=== PATIENT | female | born 1985 | race African-American/Black ===

== ENCOUNTER 2021-01-24 08:30 | Inpatient (IN) | payer OTHER ==
[2021-01-24 09:49] VITALS: BMI 32.5
[2021-01-24] MEDS ORDERED: OXYTOCIN 30 UNITS in 0.9% NS 30 UNIT/500 ML INFUS.BAG IVPB SCH (10:00)
[2021-01-24] MEDS ORDERED: ELECTROLYTE-148 SOLN 1,000 ML IV SCH (10:00)
[2021-01-24] MEDS ORDERED: AMPICILLIN SODIUM 2 GM VIAL ONE (10:08)
[2021-01-24 10:13] LABS: INR 1.01 (0.83-1.09); PROTHROMBIN TIME (PATIENT) 12.2 SEC (9.7-13.0)
[2021-01-24 10:15] LABS: BASO % 0.3 % (0-2.0); EOS % 1.1 % (0-4.5); HEMATOCRIT 29.7 % (32.4-45.2); HEMOGLOBIN 10.3 GM/dL (10.7-15.3); LYMPH % 21.5 % (8-40); MCH 29.8 pg (25.7-33.7); MCHC 34.6 g/dl (32.0-36.0); MEAN CELL VOLUME 86.3 fl (80-96); MEAN PLT VOLUME 7.9 fl (7.5-11.1); MONO % 8.2 % (3.8-10.2); NEUT % 68.9 % (42.8-82.8); PLATELET COUNT 259 K/MM3 (134-434); RBC 3.45 M/mm3 (3.60-5.2); RDW 14.9 % (11.6-15.6); WHITE BLOOD COUNT 8.9 K/mm3 (4.0-10.0)
[2021-01-24 10:16] LABS: ACTIVATED PTT 26.6 SECONDS (25.2-36.5)
[2021-01-24 10:32] LABS: CALCIUM 9.4 mg/dL (8.5-10.1)
[2021-01-24 10:33] LABS: BLOOD UREA NITROGEN 10.1 mg/dL (7-18)
[2021-01-24] MEDS ORDERED: OXYTOCIN 30 UNITS in 0.9% NS 30 UNIT/500 ML INFUS.BAG IVPB ONE (10:33)
[2021-01-24 10:36] LABS: CREATININE 0.7 mg/dL (0.55-1.3)
[2021-01-24] MEDS ORDERED: AMPICILLIN - 2 GM in SODIUM CHLORIDE 100 ML IVPB ONE (10:40)
[2021-01-24] MEDS ORDERED: AMPICILLIN SODIUM 1 GM VIAL ONE (13:23)
[2021-01-24] MEDS: AMPICILLIN - 1 GM in SODIUM CHLORIDE 100 ML IVPB SCH ×2 (13:45→18:26)
[2021-01-24] MEDS ORDERED: OXYTOCIN 20 UNITS in 0.9% NS 20 UNIT/1,000 ML INFUS.BAG IV ONE (17:07)
[2021-01-24] MEDS ORDERED: NALOXONE HCL 0.4 MG/ML VIAL IVPUSH PRN (17:08)
[2021-01-24] MEDS ORDERED: FENTANYL/BUPIVACAINE/NS/PF - PCEA - 50 ML DISP.SYRIN EP SCH (17:15)
[2021-01-24] MEDS ORDERED: WITCH HAZEL 50% (TUCKS) 40 PAD/JAR PAD TP PRN (18:20)
[2021-01-24] MEDS ORDERED: IBUPROFEN 600 MG TABLET (FP) PO PRN (18:20)
[2021-01-24] MEDS ORDERED: BISACODYL 10 MG SUPP.RECT RC PRN (18:20)
[2021-01-24] MEDS ORDERED: BENZOCAINE 28 GM HEMORRHOIDAL OINTMENT TP PRN (18:20)
[2021-01-24] MEDS ORDERED: BENZOCAINE 20% 57 GM BOTTLE TP PRN (18:20)
[2021-01-24] MEDS ORDERED: METHYLERGONOVINE MALEATE 0.2 MG/1 ML AMP IM PRN (18:20)
[2021-01-24] MEDS ORDERED: IBUPROFEN 600 MG TABLET (FP) PO ONE (18:24)
[2021-01-24] MEDS ORDERED: ACETAMINOPHEN 325 MG TABLET (FP) ONE (18:24)
[2021-01-24] MEDS: ACETAMINOPHEN 325 MG TABLET (FP) PO PRN (18:25)
[2021-01-24] MEDS ORDERED: OXYTOCIN 20 UNITS in 0.9% NS 20 UNIT/1,000 ML INFUS.BAG IV SCH (18:30)
[2021-01-25 07:48] LABS: BASO % 0.1 % (0-2.0); EOS % 0.5 % (0-4.5); HEMATOCRIT 26.5 % (32.4-45.2); HEMOGLOBIN 9.1 GM/dL (10.7-15.3); LYMPH % 12.7 % (8-40); MCH 29.4 pg (25.7-33.7); MCHC 34.4 g/dl (32.0-36.0); MEAN CELL VOLUME 85.3 fl (80-96); MEAN PLT VOLUME 7.9 fl (7.5-11.1); MONO % 7.2 % (3.8-10.2); NEUT % 79.5 % (42.8-82.8); PLATELET COUNT 228 K/MM3 (134-434); WHITE BLOOD COUNT 15.3 K/mm3 (4.0-10.0)
[2021-01-25 20:30] VITALS: TEMP 98.7
[2021-01-25] MEDS: ACETAMINOPHEN 325 MG TABLET (FP) PO PRN (20:33)
[2021-01-25] MEDS ORDERED: SENNOSIDES/DOCUSATE COMBO (SENNA PLUS) TABLET (UD) PO PRN (22:00)
[2021-01-26 08:56] VITALS: BP 117/71; PULSE 65
== END 2021-01-26 17:30 | disposition home or self-care (01) | DRG 560 ==
LOC: JLDR 08:30 → J3W 19:45
PROVIDERS: ADMIT Specialist; ATTEND Specialist
PROC: 10E0XZZ Delivery of Products of Conception, External Approach (ICD-10-PCS; principal; 2021-01-24)
PROC: 10907ZC Drainage of Amniotic Fluid, Therapeutic from Products of Conception, Via Natural or Artificial Opening (ICD-10-PCS; 2021-01-24)
DX: O36.5930 Maternal care for other known or suspected poor fetal growth, third trimester, not applicable or unspecified (principal); O10.92 Unspecified pre-existing hypertension complicating childbirth; O69.81X0 Labor and delivery complicated by cord around neck, without compression, not applicable or unspecified; O99.824 Streptococcus B carrier state complicating childbirth; Z3A.38 38 weeks gestation of pregnancy; Z37.0 Single live birth
CPT/HCPCS: 36415; 59409; 80048; 85025; 85610; 85730; 86780; 86850; 86900; 86901